=== PATIENT | male | born 1975 | race Caucasian/White ===

== ENCOUNTER 2018-06-25 13:19 | Inpatient (IN) ==
--- NOTE | 2018-06-25 16:18 | ED ---
HPI General Chief Complaint: Psychiatric Symptoms Stated Complaint: psych eval Time Seen by Provider: 06/25/18 15:14 Source: patient Mode of arrival: ambulatory Limitations: no limitations History of Present Illness HPI Narrative: 42-year-old male presents to the emergency department under Wren act. According to the Wren act report the patient was psychotic manic threatening in office. Nonsensical stream of thought. Noncompliant with meds. Patient was Wren acted by his primary care provider Joanne Lucia. Patient denies suicidal or homicidal ideations. Reports history of suicide attempt by sitting in front of a bus and overdosing on 1000 mg of trazodone. Denies auditory visual hallucinations. Reports "out of body experiences." Says he last took lithium this morning with the Risperdal to try to calm down to go to the office to get help. No known aggravating or relieving factors. Onset unknown. Duration chronic. Symptoms are moderate to severe in severity. Reports alcohol use, marijuana use, tobacco use. Sees Dr. Almendarez for psychiatry. Has history of bipolar, depression, PTSD, anxiety. Has no other medical complaints. Denies chest pain, shortness breath, abdominal pain, nausea , vomiting, change in urine or stool. No other modifying factors or associated signs and symptoms. Related Data Home Medications Medication Instructions Recorded Confirmed Marijuanna 06/25/18 bupropion HCl 150 mg PO DAILY 06/25/18 06/25/18 crofelemer [Mytesi] 125 mg PO BID 06/25/18 06/25/18 diazepam [Valium] 10 mg PO TID 06/25/18 06/25/18 dronabinol 5 mg PO BID 06/25/18 06/25/18 duloxetine [Cymbalta] 30 mg PO DAILY 06/25/18 06/25/18 esomeprazole magnesium [Nexium] 40 mg PO DAILY 06/25/18 06/25/18 levothyroxine 75 mcg PO DAILY 06/25/18 06/25/18 lithium carbonate 300 mg PO TID 06/25/18 06/25/18 zwejdhlq-inb-OM-lycopen-lutein 1 tab PO DAILY 06/25/18 06/25/18 [Centrum Silver Men] mupirocin 1 applic TOPICAL BID 06/25/18 06/25/18 mv,Ca,lpc-pesh-AC-lycopene PO DAILY 06/25/18 [Centrum Men] risperidone [Risperdal] 1 mg PO HS 06/25/18 06/25/18 tamsulosin 0.4 mg PO DAILY 06/25/18 06/25/18 topiramate [Topamax] 50 mg PO BID 06/25/18 06/25/18 triamcinolone acetonide TOPICAL DIRECTED 06/25/18 valacyclovir 1,000 mg PO BID 06/25/18 06/25/18 Allergies Allergy/AdvReac Type Severity Reaction Status Date / Time No Known Allergies Allergy Mild Uncoded 11/19/07 13:04 Review of Systems ROS: all other systems reviewed are negative PMFSH History History Provided By: Patient Medical History Medical History Hypothyroidism (Acute) Surgical History Surgical History History of tonsillectomy (Acute) Family History Family History Father Cardiac disease Social History Social History Substance History: Past History Second Hand Smoke Exposure: No Smoking Status: Current every day smoker Tobacco Type: Cigarettes How Often Do You Have a Drink Containing Alcohol: 4 or more times a week Recent Travel in [facility] within the Last 8 Weeks: No Recent Out of Country Travel within the Last 8 Weeks: No Exam Narrative Exam Narrative: GENERAL: Well-nourished, well-developed thin, male patient, in no acute distress SKIN: Warm and dry. HEAD: Atraumatic. Normocephalic. EYES: Pupils equal and round. ENT: Mucosa pink and moist. NECK: Supple. Trachea midline. CARDIOVASCULAR: Regular rate and rhythm. No murmur appreciated. RESPIRATORY: No accessory muscle use. Clear to auscultation. Breath sounds equal bilaterally. GASTROINTESTINAL: Abdomen soft, non-tender, nondistended. Hepatic and splenic margins not palpable. Bowel sounds are active 4 quadrants. MUSCULOSKELETAL: No obvious deformities. No clubbing. No cyanosis. No edema. BACK: No CVA tenderness. NEUROLOGICAL: Awake and alert. Oriented 3. No obvious cranial nerve deficits. Motor grossly within normal limits. Normal speech. Moves all extremities. 5/5 strength to all extremities. PSYCHIATRIC: No delusional thought processes. No hallucinations. Course Initial Documented Vital Signs Temperature 98.1 F 06/25/18 13:38 Pulse Rate 104 H 06/25/18 13:38 Respiratory Rate 20 06/25/18 13:38 Blood Pressure 144/97 H 06/25/18 13:38 Pulse Oximetry 100 06/25/18 13:38 Last Documented Vital Signs Temperature 97.7 F 06/27/18 06:00 Pulse Rate 78 06/27/18 06:00 Respiratory Rate 18 06/27/18 06:00 Blood Pressure 127/74 06/27/18 06:00 Pulse Oximetry 100 06/27/18 06:00 Medical Decision Making MDM Narrative Medical decision making narrative: Patient presents under a Wren act. Physical examination and vital signs are essentially unremarkable. Patient has no medical complaints to report. Psych screen has been ordered. If the laboratory results are unremarkable, the patient will be medically cleared for psychiatric evaluation and disposition. Medical Screen Exam Complete: Yes Emergency Medical Condition: Yes Differential Diagnosis Differential Diagnosis: Bipolar disorder, depression, suicidal ideation, medical clearance for psychiatric evaluation Lab Data Result diagrams: 06/25/18 16:41 06/25/18 16:41 Lab Results 06/25/18 06/25/18 06/25/18 Range/Units 14:50 16:41 16:41 WBC 6.0 (4.0-11.0) th/mm3 RBC 4.03 L (4.50-5.90) mil/mm3 Hgb 14.7 (13.0-17.0) gm/dL Hct 42.7 (39.0-51.0) % MCV 105.9 H (80.0-100.0) fL MCH 36.4 H (27.0-34.0) pg MCHC 34.4 (32.0-36.0) % RDW 13.1 (11.6-17.2) % Plt Count 297 (150-450) th/mm3 MPV 7.3 (7.0-11.0) fL Neut % (Auto) 40.9 (16.0-70.0) % Lymph % (Auto) 42.5 (9.0-44.0) % Harmon % (Auto) 8.9 H (0.0-8.0) % Eos % (Auto) 6.6 H (0.0-4.0) % Baso % (Auto) 1.1 (0.0-2.0) % Neut # (Auto) 2.5 (1.8-7.7) th/mm3 Lymph # (Auto) 2.5 (1.0-4.8) th/mm3 Harmon # (Auto) 0.5 (0.0-0.9) th/mm3 Eos # (Auto) 0.4 (0.0-0.4) th/mm3 Baso # (Auto) 0.1 (0.0-0.2) th/mm3 WBC Differential . Differential Comment Auto diff final Sodium 146 H (136-145) meq/L Potassium 3.7 (3.5-5.1) meq/L Chloride 112 H (98-107) meq/L Carbon Dioxide 23.8 (21.0-32.0) meq/L Anion Gap 10 (5-15) meq/L BUN 12 (7-18) mg/dL Creatinine 1.26 (0.60-1.30) mg/dL Estimated GFR 63 L (>89) mL/min Random Glucose 57 L (74-106) mg/dL Calcium 8.9 (8.5-10.1) mg/dL Total Bilirubin 0.3 (0.2-1.0) mg/dL AST 13 L (15-37) U/L ALT 27 (12-78) U/L Alkaline Phosphatase 39 L (45-117) U/L Total Protein 8.1 (6.4-8.2) g/dL Albumin 4.2 (3.4-5.0) g/dL TSH 1.010 (0.358-3.740) uIU/mL Salicylates (2.8-20.0) mg/dL Urine Opiates Screen Neg (Neg) Acetaminophen Less than 2.0 L (10.0-30.0) mcg/mL Ur Barbiturates Screen Neg (Neg) Ur Amphetamines Screen Neg (Neg) U Benzodiazepines Scrn Neg (Neg) [place] (0.5-1.5) meq/L Urine Cocaine Screen Neg (Neg) U Cannabinoids Screen Pos H (Neg) Serum Alcohol Less than 3 (0-5) mg/dL 06/25/18 06/25/18 Range/Units 16:41 16:41 WBC (4.0-11.0) th/mm3 RBC (4.50-5.90) mil/mm3 Hgb (13.0-17.0) gm/dL Hct (39.0-51.0) % MCV (80.0-100.0) fL MCH (27.0-34.0) pg MCHC (32.0-36.0) % RDW (11.6-17.2) % Plt Count (150-450) th/mm3 MPV (7.0-11.0) fL Neut % (Auto) (16.0-70.0) % Lymph % (Auto) (9.0-44.0) % Harmon % (Auto) (0.0-8.0) % Eos % (Auto) (0.0-4.0) % Baso % (Auto) (0.0-2.0) % Neut # (Auto) (1.8-7.7) th/mm3 Lymph # (Auto) (1.0-4.8) th/mm3 Harmon # (Auto) (0.0-0.9) th/mm3 Eos # (Auto) (0.0-0.4) th/mm3 Baso # (Auto) (0.0-0.2) th/mm3 WBC Differential Differential Comment Sodium (136-145) meq/L Potassium (3.5-5.1) meq/L Chloride (98-107) meq/L Carbon Dioxide (21.0-32.0) meq/L Anion Gap (5-15) meq/L BUN (7-18) mg/dL Creatinine (0.60-1.30) mg/dL Estimated GFR (>89) mL/min Random Glucose (74-106) mg/dL Calcium (8.5-10.1) mg/dL Total Bilirubin (0.2-1.0) mg/dL AST (15-37) U/L ALT (12-78) U/L Alkaline Phosphatase (45-117) U/L Total Protein (6.4-8.2) g/dL Albumin (3.4-5.0) g/dL TSH (0.358-3.740) uIU/mL Salicylates 3.3 (2.8-20.0) mg/dL Urine Opiates Screen (Neg) Acetaminophen (10.0-30.0) mcg/mL Ur Barbiturates Screen (Neg) Ur Amphetamines Screen (Neg) U Benzodiazepines Scrn (Neg) [place] 0.3 L (0.5-1.5) meq/L Urine Cocaine Screen (Neg) U Cannabinoids Screen (Neg) Serum Alcohol (0-5) mg/dL Discharge Plan Discharge Disposition Patient Disposition: 30 Still Patient Discharge Condition Condition: Stable Physicians Team ED Provider: Yuan Alva ED Midlevel Provider: Trena White Primary Care Provider: UNKNOWN, Attending Provider: Hermelindo Amador Other Providers: Yuan Gomez Status ED Status: Left Department Discharge Information Discharge Date/Time: 06/25/18 21:45
[2018-06-25 16:53] LABS: Baso # (Auto) 0.1 th/mm3 (0.0-0.2); Baso % (Auto) 1.1 % (0.0-2.0); Eos # (Auto) 0.4 th/mm3 (0.0-0.4); Eos % (Auto) 6.6 % (0.0-4.0); Hematocrit 42.7 % (39.0-51.0); Hemoglobin 14.7 gm/dL (13.0-17.0); Lymph # (Auto) 2.5 th/mm3 (1.0-4.8); Lymph % (Auto) 42.5 % (9.0-44.0); Mean Corpuscular HGB Conc 34.4 % (32.0-36.0); Mean Corpuscular Hemoglobin 36.4 pg (27.0-34.0); Mean Corpuscular Volume 105.9 fL (80.0-100.0); Mean Platelet Volume 7.3 fL (7.0-11.0); Mono # (Auto) 0.5 th/mm3 (0.0-0.9); Mono % (Auto) 8.9 % (0.0-8.0); Neut # (Auto) 2.5 th/mm3 (1.8-7.7); Neut % (Auto) 40.9 % (16.0-70.0); Platelet Count 297 th/mm3 (150-450); Red Blood Count 4.03 mil/mm3 (4.50-5.90); Red Cell Distribution Width 13.1 % (11.6-17.2)
[2018-06-25 17:06] LABS: Amphetamine Screen,Urine Neg (Neg); Barbiturate Screen,Urine Neg (Neg); Cannabinoid Screen,Urine Pos (Neg); Cocaine Screen,Urine Neg (Neg)
[2018-06-25 17:10] LABS: Opiate Screen,Urine Neg (Neg)
[2018-06-25 17:17] LABS: Alanine Aminotransferase 27 U/L (12-78); Albumin 4.2 g/dL (3.4-5.0); Anion Gap 10 meq/L (5-15); Aspartate Aminotransferase 13 U/L (15-37); Blood Urea Nitrogen 12 mg/dL (7-18); Calcium 8.9 mg/dL (8.5-10.1); Carbon Dioxide 23.8 meq/L (21.0-32.0); Chloride 112 meq/L (98-107); Glomerular Filtration Rate 63 mL/min (>89); Glucose,Random 57 mg/dL (74-106); Potassium 3.7 meq/L (3.5-5.1); Sodium 146 meq/L (136-145)
[2018-06-25 17:27] LABS: Alkaline Phosphatase 39 U/L (45-117); Total Protein 8.1 g/dL (6.4-8.2)
[2018-06-25] MEDS: Topiramate 25 MG Tablet PO SCH (21:35)
[2018-06-26] MEDS: Levothyroxine 75 MCG Tablet PO SCH (06:19)
[2018-06-26] MEDS: Topiramate 25 MG Tablet PO SCH ×2 (08:44→21:35)
[2018-06-26] MEDS ORDERED: VALACYCLOVIR 1000 MG PO SCH (09:00)
[2018-06-26] MEDS ORDERED: CROFELEMER 125 MG PO SCH (09:00)
[2018-06-26] MEDS: buPROPion 150 MG XL 24 HR Tablet PO SCH (09:23)
--- NOTE | 2018-06-26 16:44 | P.CON ---
History of Present Illness Service: [facility] Consult date: 06/26/18 Requesting Physician: Hermelindo Amador Reason for Consult: Assist with medical management Primary Care Provider: UNKNOWN History of Present Illness: Patient is a 42-year-old male with primary medical history of hypothyroidism who initially came to the hospital under Wren act from PCP. He is now admitted to inpatient psychiatry unit for further evaluation. Consulted for assistance with medical management, TMJ, HIV on HAART, sores with dentures. Patient seen and examined today. Patient started on saying that there is something wrong with his neck and his skin in his body. Patient is very somatic and most of his reasons are intangible. He believes that if he "massages his muscles in his head that he has had shrinks making his skull small." States he has AIDs HIV he got from chickenpox. States that he follows with [facility] with Dr. Mccullough. Patient just keeps on reverting to all his ailments but does not accept the medical reasons. He believes " I am a medical mystery." C/o about "trouble swallowing and felt throat is tight." States he has all "egd and colonoscopy done but they can't find anything." Patient appears to be severely manic. Somatic. He complains of discomfort, nausea, vomiting, chest pain, palpitations. Review of Systems other (ROS is skewed due to mental condition) [facility] History History Provided By: Patient - Medical History Medical History: Medical History (Last Updated 06/26/18 @ 16:47 by MISHA Johnson) Hypothyroidism - Surgical History Surgical History: Surgical History (Last Updated 06/25/18 @ 16:24 by Eduardo Avalos) History of tonsillectomy - Family History Family History: Family History (Last Updated 06/26/18 @ 17:50 by MISHA Johnson) Father Cardiac disease - Social History I have reviewed the patient's Social History: Yes - Tobacco History Second Hand Smoke Exposure: No Tobacco Use In Past 30 Days: Yes Smoking Status: Current every day smoker Tobacco Type: Cigarettes - Alcohol History How Often Do You Have a Drink Containing Alcohol: 4 or more times a week - Substance Use History Substance History: Past History - Substance Use Type Other Comment: Patient was very vague about his substance use; patient specifically stated "substance use....not substance abuse". Patient states "it would be easier to tell you what I haven't done...". Then patient listed substances used , methamphetamine, coke, cocaine and marijuana. Patient denies current use. - Travel History Recent Travel in the [place] Within the Last 8 Weeks: No Recent Travel Out of the Country Within the Last 8 Weeks: No - Immunization History Tetanus Immunization: <5 Years Tetanus Immunization Year if Known: 2015 Hx Influenza Vaccine This Season: No Medications and Allergies Active Medications: Active Medications Bupropion HCl (Wellbutrin Xl) 150 mg PO DAILY [facility] Last Admin: 06/26/18 09:23 Dose: Not Given Diazepam (Valium) 10 mg PO TID [facility] Last Admin: 06/26/18 12:41 Dose: 10 mg Dronabinol (Marinol) 5 mg PO 1100,1600 [facility] Last Admin: 06/26/18 15:56 Dose: 5 mg Duloxetine HCl (Cymbalta) 30 mg PO DAILY [facility] Last Admin: 06/26/18 09:23 Dose: Not Given Levothyroxine Sodium (Synthroid) 75 mcg PO DAILY@0600 [facility] Last Admin: 06/26/18 06:19 Dose: 75 mcg U[place]ala Carbonate (Upsala Carbonate) 300 mg PO TID [facility] Last Admin: 06/26/18 12:42 Dose: 300 mg Nicotine (Habitrol 21 Mg Patch.24 Hr) 1 patch T-DERMAL DAILY [facility] Last Admin: 06/26/18 14:02 Dose: 1 patch Pantoprazole Sodium (Protonix) 40 mg PO DAILY [facility] Last Admin: 06/26/18 08:43 Dose: 40 mg Patch Removal (Remove Old Patch) 0 each T-DERMAL HS [facility] Pat Own Med: Crofelemer (Mytesi) 125mg Tablet 0 each PO BID [facility] Pat Own Med: Valcyclovir 1000mg Tablet 0 each PO BID [facility] Risperidone (Risperdal) 1 mg PO DAILY@2100 [facility] Last Admin: 06/25/18 23:46 Dose: Not Given Tamsulosin HCl (Flomax) 0.4 mg PO DAILY [facility] Last Admin: 06/26/18 08:44 Dose: Not Given Topiramate (Topamax) 50 mg PO BID [facility] Last Admin: 06/26/18 08:44 Dose: 50 mg Allergies Allergy/AdvReac Type Severity Reaction Status Date / Time No Known Allergies Allergy Mild Uncoded 11/19/07 13:04 Home Medications Medication Instructions Recorded Confirmed Type Alber 06/25/18 History bupropion HCl 150 mg PO DAILY 06/25/18 06/25/18 History crofelemer [Mytesi] 125 mg PO BID 06/25/18 06/25/18 History diazepam [Valium] 10 mg PO TID 06/25/18 06/25/18 History dronabinol 5 mg PO BID 06/25/18 06/25/18 History duloxetine [Cymbalta] 30 mg PO DAILY 06/25/18 06/25/18 History esomeprazole magnesium [Nexium] 40 mg PO DAILY 06/25/18 06/25/18 History levothyroxine 75 mcg PO DAILY 06/25/18 06/25/18 History lithium carbonate 300 mg PO TID 06/25/18 06/25/18 History dzxfjtrj-yam-YI-lycopen-lutein 1 tab PO DAILY 06/25/18 06/25/18 History [Centrum Silver Men] mupirocin 1 applic TOPICAL BID 06/25/18 06/25/18 History mv,Ca,cna-hsyj-OM-lycopene PO DAILY 06/25/18 History [Centrum Men] risperidone [Risperdal] 1 mg PO HS 06/25/18 06/25/18 History tamsulosin 0.4 mg PO DAILY 06/25/18 06/25/18 History topiramate [Topamax] 50 mg PO BID 06/25/18 06/25/18 History triamcinolone acetonide TOPICAL DIRECTED 06/25/18 History valacyclovir 1,000 mg PO BID 06/25/18 06/25/18 History Physical Exam Vital signs: Vital Signs 06/25/18 17:42 06/25/18 18:35 06/25/18 22:15 Temperature 98.6 F 97.6 F Pulse Rate 105 H 83 90 Respiratory Rate 20 16 18 Blood Pressure 143/81 H 154/89 H 120/76 Pulse Oximetry 100 100 100 06/26/18 05:34 Temperature 97.9 F Pulse Rate 85 Respiratory Rate 16 Blood Pressure 130/78 Pulse Oximetry 100 Intake & Output 06/25/18 06/26/18 06/26/18 18:59 06:59 18:59 Weight 63.503 kg 63.503 kg Other: Weight On Admission 63.503 kg Narrative: GENERAL: This is a thin appearing, in no apparent distress. SKIN: Warm and dry HEENT: Normocephalic. Pupils equal round and reactive. Nose without bleeding. Airway patent. NECK: Trachea midline. CARDIOVASCULAR: Regular rate and rhythm without murmurs, gallops, or rubs. RESPIRATORY: Clear to auscultation. Breath sounds equal bilaterally. No wheezes , rales, or rhonchi. GASTROINTESTINAL: Abdomen soft, non-tender, nondistended. Bowel Sounds normoactive x4. MUSCULOSKELETAL: Extremities without clubbing, cyanosis, or edema. NEUROLOGICAL: Awake and alert. No focal neuro deficit. Moves all extremities. Hyperverbal. Delusions. Assessment and Plan - Plan Patient is a 42-year-old male with primary medical history of hypothyroidism who initially came to the hospital under Wren act from PCP. He is now admitted to inpatient psychiatry unit for further evaluation. Consulted for assistance with medical management. Bipolar, schizoaffective disorder, somatic disorder -Managed by psychiatry team -Patient is very somatic, of his complaints are not reasonable and reliable HIV -Continue with heart medication TRIUMEQ -Continue to follow with Dr. Mccullough in the outpatient setting Hypothyroidism -Continue with levothyroxine -Check TSH -Appears to have goiter protrusion, US thyroid DVT Prop Ambulatory Code Status: Full Code Discussed Condition With: Patient, nurse Discharge Planning: DC disposition by primary team
[2018-06-26] MEDS ORDERED: [UNRECOGNIZED DRUG - OTHER] PO SCH (18:00)
--- NOTE | 2018-06-26 20:52 | P.HPPSY ---
Provisional Diagnosis Admission Date: June 25, 2018 21:49 [place] I.: Bipolar disorder, manic episode Competence Certification of Person's Competence To Provide Express and Informed Consent I have personally examined Billy Knight, a person being served at [facility] on, June 26, [id number]. Express and informed consent means consent voluntarily given in writing, by a competent person, after sufficient explanation and disclosure of the subject matter involved to enable the person to make a knowing and willful decision without any element of force, fraud, deceit, duress, or other form of constraint or coercion. This person is 18 years of age or older, is not now known to be incompetent to consent to treatment with a guardian advocate, and does not have a health care surrogate or proxy currently making medical treatment decisions. I have found this person to be one of the following: [xxx] Competent to provide express and informed consent, as defined above, for voluntary admission to this facility and is competent to provide express and informed consent for treatment. He/she has the consistent capacity to make well reasoned, willful, and knowing decisions concerning his or her medical or mental health treatment. The person fully and consistently understands the purpose of the admission for examination/placement and is fully capable of personally exercising all rights assured [place] [] Incompetent to provide express and informed consent to voluntary admission, and this is incompetent to provide express and informed consent to treatment. The person must be transferred to involuntary status and a petition for a guardian advocate filed with the Circuit Court. [] Refusing to provide express and informed consent to voluntary admission but is competent to provide express and informed consent for treatment. The person must be discharged or transferred to involuntary status. Form shall be completed within 24 hours of a person's arrival at the receiving facility and filed in the clinical record of each person: 1. Admitted on a voluntary basis 2. Permitted to provide express and informed consent to his/her own treatment 3. Allowed to transfer from involuntary to voluntary status 4. Prior to permitting a person to consent to his or her own treatment after having been previously found incompetent to consent to treatment. History of Present Illness Capacity: Has capacity History of Present Illness: Patient is a 42-year-old man, single, with 2 children, domiciled with parents, unemployed on SSI, with a past psychiatric history of bipolar disorder , PTSD, depression and anxiety, one previous psychiatric admission, reports 2 previous suicide attempts, self-injurious behavior via hitting, with a substance use history significant for polysubstance use, with a past medical history of HIV, hypothyroidism who was brought in under [place] act due to being threatening in the office of his primary care doctor, nonsensical stream of thoughts and compliant with medications which patient was admitted to the inpatient psychiatry for further evaluation and management. Patient had been Wren acted by primary care doctor, has history of suicide attempt via overdose in the past previously on lithium and risperidone, has outpatient psychiatrist whom he follows, Dr. Black. Patient was found somewhat loud and labile on the unit but interviewed in his room along with nurse and medical students. Patient noted with irritability during interview is labile, tangential require redirection at times for interview. Patient states having several somatic symptoms. Patient reports that his whole family has "dehydration" and stated he was Wren acted from his home stating that he had called police because his family was not listening to him as opposed to report of patient being Wren acted from primary care office. Patient states that she had a prior psychiatric admission at [facility] in which she felt "drugged up" and was on lithium, risperidone during that admission. Patient states that he lives in a house of "no acknowledgment" likely having relationship discord with his family. Patient has difficulty with redirection during interview noted with pressured speech, tangentiality and disorganization. Family psychiatric history: Patient reports bipolar disorder in his family Past psychiatric history: Bipolar disorder, PTSD, depression and anxiety, reports one previous psychiatric admission, reports 2 previous suicide attempt in the past, reports self-injurious behavior via hitting. Patient has outpatient provider Dr. Black and currently on Wellbutrin 150 mg daily, diazepam 10 mg p.o. 3 times daily, risperidone 1 mg daily, Cymbalta 30 mg daily , lithium 300 mg p.o. 3 times daily. Patient recent lithium level was subtherapeutic. Substance use history: alcohol, methamphetamine, cocaine and marijuana Allergies: NKDA Past medical history: HIV on Love, hypothyroidism Social history, single, has 2 children, domiciled with parents, unemployed on SSI. - Inpatient Certification I certify that the inpatient services were ordered in accordance with Medicare regulations governing the order. This includes certification that hospital inpatient services are reasonable and necessary and in the case of services not specified as inpatient-only under 42 CFR 419.22(n), that they are appropriately provided as inpatient services in accordance to with the 2-midnight benchmark under 43 CFR 412.3(e) I certify that inpatient psychiatric hospital services are medically necessary. Evaluation and treatment and/or diagnostic testing are expected to improve the patient's condition. The patient needs on a daily basis, active treatment furnished directly by or requiring the supervision of inpatient psychiatric facility personnel. Estimated Total Length of Stay (Days): 7 Plans for Post Hospital Care: Not yet determined Review of Systems All other systems reviewed negative except as stated in HPI PMFSH - History History Provided By: Patient, Medical Record - Medical History Medical History: Medical History (Last Updated 06/26/18 @ 16:47 by MISHA Johnson) Hypothyroidism - Surgical History Surgical History: Surgical History (Last Updated 06/25/18 @ 16:24 by Eduardo Avalos) History of tonsillectomy - Family History Family History: Family History (Last Updated 06/26/18 @ 17:50 by MISHA Johnson) Father Cardiac disease - Tobacco History Second Hand Smoke Exposure: No Tobacco Use In Past 30 Days: Yes Smoking Status: Current every day smoker Tobacco Type: Cigarettes - Alcohol History How Often Do You Have a Drink Containing Alcohol: 4 or more times a week - Substance Use History Substance History: Past History - Substance Use Type Other Comment: Patient was very vague about his substance use; patient specifically stated "substance use....not substance abuse". Patient states "it would be easier to tell you what I haven't done...". Then patient listed substances used , methamphetamine, coke, cocaine and marijuana. Patient denies current use. - Travel History Recent Travel in the [place] Within the Last 8 Weeks: No Recent Travel Out of the Country Within the Last 8 Weeks: No - Immunization History Tetanus Immunization: <5 Years Tetanus Immunization Year if Known: 2015 Hx Influenza Vaccine This Season: No Quality Measures - Psychiatric History Violence risk to others in the last 6 months: Low Violence risk to self in the last 6 months: History of previous suicide attempts - Substance Abuse History Drug or alcohol use in the past 12 months: See HPI - Patient Strengths Patient's strengths (minimum of 2): Verbal and communicative Medications and Allergies Active Medications: Active Medications Bupropion HCl (Wellbutrin Xl) 150 mg PO DAILY [facility] Last Admin: 06/26/18 09:23 Dose: Not Given Diazepam (Valium) 10 mg PO TID [facility] Last Admin: 06/26/18 18:16 Dose: 10 mg Dronabinol (Marinol) 5 mg PO 1100,1600 [facility] Last Admin: 06/26/18 15:56 Dose: 5 mg Duloxetine HCl (Cymbalta) 30 mg PO DAILY [facility] Last Admin: 06/26/18 09:23 Dose: Not Given Levothyroxine Sodium (Synthroid) 75 mcg PO DAILY@0600 [facility] Last Admin: 06/26/18 06:19 Dose: 75 mcg [place] Carbonate ([place] Carbonate) 300 mg PO TID [facility] Last Admin: 06/26/18 18:16 Dose: 300 mg Nicotine (Habitrol 21 Mg Patch.24 Hr) 1 patch T-DERMAL DAILY [facility] Last Admin: 06/26/18 14:02 Dose: 1 patch Pantoprazole Sodium (Protonix) 40 mg PO DAILY [facility] Last Admin: 06/26/18 08:43 Dose: 40 mg Patch Removal (Remove Old Patch) 0 each T-DERMAL [facility] Pat Own Med: Crofelemer (Mytesi) 125mg Tablet 0 each PO BID [facility] Pat Own Med: Valcyclovir 1000mg Tablet 0 each PO BID [facility] Pt:Triumeq(600 Mg/50 (Mg/300 Mg)) 0 each PO DAILY [facility] Risperidone (Risperdal) 1 mg PO DAILY@2100 [facility] Last Admin: 06/25/18 23:46 Dose: Not Given Tamsulosin HCl (Flomax) 0.4 mg PO DAILY [facility] Last Admin: 06/26/18 08:44 Dose: Not Given Topiramate (Topamax) 50 mg PO BID [facility] Last Admin: 06/26/18 08:44 Dose: 50 mg Allergies Allergy/AdvReac Type Severity Reaction Status Date / Time No Known Allergies Allergy Mild Uncoded 11/19/07 13:04 Home Medications Medication Instructions Recorded Confirmed Type Alber 06/25/18 History bupropion HCl 150 mg PO DAILY 06/25/18 06/25/18 History crofelemer [Mytesi] 125 mg PO BID 06/25/18 06/25/18 History diazepam [Valium] 10 mg PO TID 06/25/18 06/25/18 History dronabinol 5 mg PO BID 06/25/18 06/25/18 History duloxetine [Cymbalta] 30 mg PO DAILY 06/25/18 06/25/18 History esomeprazole magnesium [Nexium] 40 mg PO DAILY 06/25/18 06/25/18 History levothyroxine 75 mcg PO DAILY 06/25/18 06/25/18 History lithium carbonate 300 mg PO TID 06/25/18 06/25/18 History vknfxmyp-fzq-ZB-lycopen-lutein 1 tab PO DAILY 06/25/18 06/25/18 History [Centrum Silver Men] mupirocin 1 applic TOPICAL BID 06/25/18 06/25/18 History mv,Ca,nzp-hwny-YH-lycopene PO DAILY 06/25/18 History [Centrum Men] risperidone [Risperdal] 1 mg PO HS 06/25/18 06/25/18 History tamsulosin 0.4 mg PO DAILY 06/25/18 06/25/18 History topiramate [Topamax] 50 mg PO BID 06/25/18 06/25/18 History triamcinolone acetonide TOPICAL DIRECTED 06/25/18 History valacyclovir 1,000 mg PO BID 06/25/18 06/25/18 History Results - Labs CBC & Chem 7: 06/25/18 16:41 06/25/18 16:41 Exam Vital signs: Vital Signs 06/25/18 22:15 06/26/18 05:34 Temperature 97.6 F 97.9 F Pulse Rate 90 85 Respiratory Rate 18 16 Blood Pressure 120/76 130/78 Pulse Oximetry 100 100 Intake & Output 06/26/18 06/26/18 06/27/18 06:59 18:59 06:59 Weight 63.503 kg Other: Weight On Admission 63.503 kg Narrative: Patient not noted to be in acute distress, no gross motor abnormalities, no signs of tremor or EPS, no psychomotor agitation or retardation. - Constitutional no acute distress, cooperative Mental Status Examination Appearance: Disheveled Consciousness: Alert Orientation: Person, Place, Date/Time Motor Activity: Normal gait Speech: Pressured, Rapid Language: Neologism Fund of Knowledge: Inadequate Attention and Concentration: Easily distracted Memory: Unremarkable Mood: Irritable, Manic Affect: Labile Thought Process & Associations: Disorganized, Tangential Thought Content: Racing thoughts Hallucination Type: None Delusion Type: None Suicidal Ideation: No Suicidal Plan: No Suicidal Intention: No Homicidal Ideation: No Homicidal Plan: No Homicidal Intention: No Insight: Poor Judgment: Poor Assessment and Plan - Assessment (1) Bipolar disorder Code(s): F31.9 - Bipolar disorder, unspecified Status: Acute - Plan Plan: Estimated LOS: [] days Patient is a 42-year-old man with a history of bipolar disorder, previous psychiatric admissions, previous suicide attempts, polysubstance use disorder history, with a past medical history significant for HIV and hypothyroidism who was brought in under Wren act due to current manic symptoms which patient this time continues to exhibit require psychiatric stabilization. We will have patient resume home medications, hospitalist input appreciated. We will continue to monitor mood and behavior. Patient agrees to voluntary admission has capacity to consent for treatment at this time. Discharge planning a progress. Justification for Continued Inpatient Stay: At risk of further decompensation at lower level care. (1) Bipolar disorder Qualifiers: Active/Remission status: currently active Current bipolar episode type: manic Current episode severity: severe Psychotic features: without psychotic features Qualified Code(s): F31.13 - Bipolar disorder, current episode manic without psychotic features, severe
[2018-06-27] MEDS: Levothyroxine 75 MCG Tablet PO SCH (06:20)
[2018-06-27] MEDS ORDERED: DOLUTEGRAVIR PO SCH (09:00)
[2018-06-27] MEDS ORDERED: LAMIVUDINE PO SCH (09:00)
[2018-06-27] MEDS ORDERED: ABACAVIR PO SCH (09:00)
--- NOTE | 2018-06-27 09:38 | US ---
EXAM DATE: 06/27/2018 12:00 AM EDT AGE/SEX: 42 years / Male INDICATIONS: Difficulty swallowing. Possible goiter. Hypothyroidism. CLINICAL DATA: This is the patient's initial encounter. Patient reports that signs and symptoms have been present for 1 day and indicates a pain score of 0/10. MEDICAL/SURGICAL HISTORY: Hypothyroidism. HIV. TMJ. Tonsillectomy. COMPARISON: No prior exams available for comparison. MEASUREMENTS: Right Lobe: 5.8 x 1.6 x 1.5 cm Left Lobe: 4.7 x 1.8 x 1.9 cm FINDINGS: Right Lobe: Homogeneous echotexture without nodules or cysts. Vascularity is within normal limits. Left Lobe: Homogeneous echotexture without nodules or cysts. Vascularity is within normal limits. Isthmus: Normal in size without focal abnormality. Other: None. CONCLUSION: 1. Normal thyroid ultrasound. Electronically signed by: Vic Sales MD 06/27/2018 9:37 AM EDT
[2018-06-27] MEDS: buPROPion 150 MG XL 24 HR Tablet PO SCH (09:53)
[2018-06-27] MEDS: Topiramate 25 MG Tablet PO SCH ×2 (09:55→21:14)
[2018-06-27] MEDS: DOLUTEGRAVIR PO SCH (09:56)
[2018-06-27] MEDS: LAMIVUDINE PO SCH (09:56)
[2018-06-27] MEDS: ABACAVIR PO SCH (09:56)
--- NOTE | 2018-06-27 17:34 | P.PN ---
Subjective Interval history: Follow-up visit hypothyroidism and HIV. Patient seen today. States he is doing okay. Discussed with patient results of ultrasound of the thyroid being negative. TSH has been within normal. He needs to continue with his levothyroxine. As per nursing, no acute medical issues overnight. Physical Exam Vital signs: Vital Signs 06/27/18 06:00 Temperature 97.7 F Pulse Rate 78 Respiratory Rate 18 Blood Pressure 127/74 Pulse Oximetry 100 Intake & Output 06/26/18 06/27/18 06/27/18 18:59 06:59 18:59 Intake Total 240 / 240 Balance 240 / 240 Intake: Oral 240 / 240 Narrative: GENERAL: This is a thin appearing, in no apparent distress. SKIN: Warm and dry. HEENT: Normocephalic. Pupils equal round and reactive. Nose without bleeding. Airway patent. NECK: Trachea midline. MUSCULOSKELETAL: Extremities without clubbing, cyanosis, or edema. NEUROLOGICAL: Awake and alert. No focal neuro deficit. Moves all extremities. Normal speech. Results - Labs CBC & Chem 7: 06/25/18 16:41 06/25/18 16:41 - Imaging Impressions Thyroid Ultrasound 06/27/18 00:00 CONCLUSION: 1. Normal thyroid ultrasound. Assessment and Plan - Plan Patient is a 42-year-old male with primary medical history of hypothyroidism who initially came to the hospital under Wren act from PCP. He is now admitted to inpatient psychiatry unit for further evaluation. Consulted for assistance with medical management. Bipolar, schizoaffective disorder, somatic disorder -Managed by psychiatry team -Patient is very somatic, of his complaints are not reasonable and reliable HIV -Continue with heart medication TRIUMEQ -Continue to follow with Dr. Mccullough in the outpatient setting Hypothyroidism -Continue with levothyroxine -TSH within normal -US thyroid within normal DVT Prop Ambulatory Stable from Hospitalist standpoint. We will sign off. Reconsult as needed. Thank you. Code Status: Full code Discussed Condition With: Patient, nurse Discharge Planning: DC disposition by primary team
--- NOTE | 2018-06-27 17:58 | P.PNPSY ---
Subjective Remarks: Patient seen for follow-up, chart reviewed. Discussion with nursing staff reported that patient had ultrasound of thyroid continue to be irritable, with a slight stated wanting to hurt promotion writer continues to be noted with pressured speech and racing thoughts. Patient was found in day room speaking to other patients. Patient was interviewed in his room along with initial medical students. Patient reports that he is feeling "fine" now that he is on his HIV medications. Patient also noted to be focused on the risperidone continue to be noted to be irritable during interview. Patient states "my house needs acknowledgment". Patient reports adequate appetite states she has been trying to go to group order was not allowed due to his behavior at this time. Patient states "I am hypersensitive to noise" which he states was disturbing his sleep. Review of Systems All other systems reviewed negative except as stated in HPI Mental Status Examination Appearance: Disheveled Consciousness: Alert Orientation: Person, Place, Date/Time Motor Activity: Normal gait Speech: Pressured, Rapid Language: Neologism Fund of Knowledge: Inadequate Attention and Concentration: Easily distracted Memory: Unremarkable Mood: Irritable, Manic Affect: Labile Thought Process & Associations: Disorganized, Tangential Thought Content: Racing thoughts Hallucination Type: None Delusion Type: None Suicidal Ideation: No Suicidal Plan: No Suicidal Intention: No Homicidal Ideation: No Homicidal Plan: No Homicidal Intention: No Insight: Poor Judgment: Poor Assessment and Plan - Assessment (1) Bipolar disorder Code(s): F31.9 - Bipolar disorder, unspecified Status: Acute - Plan Plan: Patient today continues with labile mood, irritability, disorganized at times and tangential. We will continue to increase risperidone to 100 mg p.o. twice daily for stabilization, continue rest of medications. Continue to monitor mood and behavior. We will draw lithium level at appropriate time interval. Discharge planning in progress. Justification for Continued Inpatient Stay: At risk of further decompensation at lower level care. (1) Bipolar disorder Qualifiers: Active/Remission status: currently active Current bipolar episode type: manic Current episode severity: severe Psychotic features: without psychotic features Qualified Code(s): F31.13 - Bipolar disorder, current episode manic without psychotic features, severe
--- NOTE | 2018-06-27 20:47 | ECG ---
Date Performed: 06/26/2018 Time Performed: 14:36:40 PTAGE: 42 years EKG: Sinus rhythm WITH SINUS ARRHYTHMIA NONSPECIFIC T-WAVE ABNORMALITY BORDERLINE ECG PREVIOUS TRACING : 11/14/2007 07.05 Since the previous tracing, no significant change noted DOCTOR: Terence Chacon Interpretating Date/Time 06/27/2018 20:46:18
[2018-06-28] MEDS: Levothyroxine 75 MCG Tablet PO SCH (07:41)
[2018-06-28] MEDS: DOLUTEGRAVIR PO SCH (08:02)
[2018-06-28] MEDS: ABACAVIR PO SCH (08:02)
[2018-06-28] MEDS: LAMIVUDINE PO SCH (08:02)
[2018-06-28] MEDS: Topiramate 25 MG Tablet PO SCH ×2 (08:03→21:20)
[2018-06-28] MEDS: buPROPion 150 MG XL 24 HR Tablet PO SCH (08:03)
--- NOTE | 2018-06-28 18:16 | P.PNPSY ---
Subjective Remarks: Reviewed electronic medical records and discussed case with staff. Follow-up was conducted in the day room with MARION Tolentino present. Patient states that he is "feeling a lot better" although, he claims that he has been sleeping well. He complains about the timing of his meds stating that he was given all his meds at lunchtime and fell asleep several times during lunch. However, upon checking his med rec I only see 2 medications being given at lunchtime, so I will make no changes. He does report that his appetite's been good. He is requesting a medical consult for his asthma stating that he cannot afford the breathing treatment that he is currently on. Although when I look at his med reconciliation again I do see he has an inhaler ordered and there is no indication of shortness of breath as he was quite manic and talking nonstop. So at this time I will not put a consult request in. Mental Status Examination Appearance: Disheveled Consciousness: Alert Orientation: Person, Place, Date/Time Motor Activity: Normal gait Speech: Pressured, Rapid Language: Neologism Fund of Knowledge: Inadequate Attention and Concentration: Easily distracted Memory: Unremarkable Mood: Irritable, Manic Affect: Labile Thought Process & Associations: Disorganized, Tangential Thought Content: Racing thoughts Hallucination Type: None Delusion Type: None Suicidal Ideation: No Suicidal Plan: No Suicidal Intention: No Homicidal Ideation: No Homicidal Plan: No Homicidal Intention: No Insight: Poor Judgment: Poor Assessment and Plan - Assessment (1) Bipolar disorder Code(s): F31.9 - Bipolar disorder, unspecified Status: Acute - Plan Plan: Patient will be reevaluated Saturday by the attending psychiatrist. Continue with current treatment plan. Justification for Continued Inpatient Stay: Moving this patient to a less restrictive environment would likely result in decompensation. (1) Bipolar disorder Qualifiers: Active/Remission status: currently active Current bipolar episode type: manic Current episode severity: severe Psychotic features: without psychotic features Qualified Code(s): F31.13 - Bipolar disorder, current episode manic without psychotic features, severe
[2018-06-29] MEDS: Levothyroxine 75 MCG Tablet PO SCH (05:31)
[2018-06-29] MEDS: buPROPion 150 MG XL 24 HR Tablet PO SCH (08:34)
[2018-06-29] MEDS: Topiramate 25 MG Tablet PO SCH ×2 (08:34→20:11)
[2018-06-29] MEDS: LAMIVUDINE PO SCH (08:35)
[2018-06-29] MEDS: DOLUTEGRAVIR PO SCH (08:35)
[2018-06-29] MEDS: ABACAVIR PO SCH (08:35)
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
[2018-06-30] MEDS: Levothyroxine 75 MCG Tablet PO SCH (07:15)
[2018-06-30] MEDS: ABACAVIR PO SCH (08:09)
[2018-06-30] MEDS: LAMIVUDINE PO SCH (08:09)
[2018-06-30] MEDS: DOLUTEGRAVIR PO SCH (08:09)
[2018-06-30] MEDS: Topiramate 25 MG Tablet PO SCH ×2 (08:11→20:13)
[2018-06-30] MEDS: buPROPion 150 MG XL 24 HR Tablet PO SCH (08:12)
--- NOTE | 2018-06-30 13:58 | P.TTN ---
- Patient Problems Problems: 1. Discharge planning 2. Medication compliance 3. Knowledge deficit 4. Lack of coping skills - Progress Toward Goals Provider Present: Dr. Sylvester Amador (Patient is manic, Dr. Amador is titrating medications.) Psychiatric Counselors Present: Stefan Moss Jr., [facility] (Counselor will meet with the patient today to discuss discharge plan.) Group Spec/RT/OT/GIBSON Present: PAIGE Kruse (Attends groups) - Documentation Teaching Recipient: Patient
--- NOTE | 2018-06-30 14:56 | P.DIET ---
Nutritional Evaluation Type of nutrition evaluation: initial Nutrition screening: Weight Loss > 10 lbs Subjective Oral Diet Tolerance Assessment Indicates: Dentures, Edentulous (please see ST noted 06/26/18) Subjective Comments: 100% po intake for meals today. Objective - Diagnosis Psychosis - Objective [place] body weight: 81 kg % IBW: 78 Body Weight Used for Calculations: Actual (63.5) Energy Needs - Lower Range (kCal/kg): 35 Energy Needs - Upper Range (kCal/kg): 40 Lower Limit kCal/kg (kCals): 2,223 Upper Limit kCal/kg (kCals): 2,540 Lower Limit Protein Factor (Grams per Kg): 1.4 Upper Limit Protein Factor (Grams per Kg): 1.8 Lower Protein Needs (Protein): 89 Upper Protein Needs (Protein): 114 Dietitian Reviewed in Medical Record: Current diet, Curent medications, Intake & Output, Labs, Medical history Diet Order: Regular Oral Diet Intake Amount: Good 75-90% Speech Therapy Recommendations: Yes (Pt w/loose fitting dentures; prefers po intake without dentures) Objective Comments: PMH includes: hypothyroidism, HIV on ART, bipolar DO, PTSD, Depression, Anxiety , PSA Meds Include: Wellbutrin, Vallium, Marinol, Cymbalta, Synthroid, [place] Carbonate, Protonix, Risperdal, Topamax Assessment Assessment: Pt is at nutritional risk r/t recent unintentional wt loss. Adequate po intake 75% or greater for meals here. Noted ST Rec for Mech Soft; however, pt tolerating regular diet. Rec Ensure Enlive oral supplement TID(= 350 kcal and 20g Protein per serving). Labs reviewed. Dietitian will follow. Recommendations: 1. Rec Ensure Enlive oral supplement TID 2. Dietitian will follow Dietitian to Monitor: Lab values, Supplement acceptance, Intake & Output, Diet tolerance, Weight change, PO Intake, Medical course
--- NOTE | 2018-06-30 16:30 | P.PNPSY ---
Subjective Remarks: Patient seen for follow-up, chart reviewed. Discussion with nursing staff reported that patient continues to be intrusive but noted to be more calm. Patient was found in the room noted B, cooperative. Patient noted to have less pressured speech, more organized thought process although continues to be tangential at times. Patient states that he had a "accident over the weekend" referring to some urinary incontinence was upset that he was not allowed to shower until after breakfast. Patient reports sleeping is "on and off" in contrast to nursing report the patient is sleeping without any disturbance. Patient reports his mood has been "great" stating that he has been busy helping "keep the peace" on the unit. Patient denies any depressed mood denies any suicide ideations. Patient reports that his mother came to visit him this evening and states that there is a lot of pressure in his home. He states that he is considering wanting to explore possibility of going to an assisted living facility as well as engage in the get back to work program through vocational training. He mentions that he had used to engage in the center program and has had vocational training in the past. Review of Systems All other systems reviewed negative except as stated in HPI Mental Status Examination Appearance: Appropriate Consciousness: Alert Orientation: Person, Place, Date/Time Motor Activity: Normal gait Speech: Pressured (Lessening) Language: Neologism Fund of Knowledge: Inadequate Attention and Concentration: Easily distracted Memory: Unremarkable Mood: Irritable (Lessening) Affect: Irritable (Lessening) Thought Process & Associations: Disorganized (Lessening), Tangential Thought Content: Racing thoughts (Lessening) Hallucination Type: None Delusion Type: None Suicidal Ideation: No Suicidal Plan: No Suicidal Intention: No Homicidal Ideation: No Homicidal Plan: No Homicidal Intention: No Insight: Fair Judgment: Impulsive Assessment and Plan - Assessment (1) Bipolar disorder Code(s): F31.9 - Bipolar disorder, unspecified Status: Acute - Plan Plan: Patient this time noted to have less pressured speech to be with more organized thought process and more appropriate in answering questions. We will continue to titrate risperidone to 1 mg a.m./2 mg at bedtime for mood stabilization, continue rest of medications. We will order chemistries and lithium level in the a.m. to monitor. We will continue rest of medications. We will continue to monitor mood and behavior. Discharge planning in progress. Justification for Continued Inpatient Stay: At risk of further decompensation at lower level care. (1) Bipolar disorder Qualifiers: Active/Remission status: currently active Current bipolar episode type: manic Current episode severity: severe Psychotic features: without psychotic features Qualified Code(s): F31.13 - Bipolar disorder, current episode manic without psychotic features, severe
[2018-07-01] MEDS: Levothyroxine 75 MCG Tablet PO SCH (05:38)
[2018-07-01] MEDS: ABACAVIR PO SCH (08:22)
[2018-07-01] MEDS: DOLUTEGRAVIR PO SCH (08:22)
[2018-07-01] MEDS: LAMIVUDINE PO SCH (08:22)
[2018-07-01] MEDS: Topiramate 25 MG Tablet PO SCH (08:23)
[2018-07-01] MEDS: buPROPion 150 MG XL 24 HR Tablet PO SCH (08:23)
[2018-07-01 12:21] LABS: Albumin 3.8 g/dL (3.4-5.0); Anion Gap 6 meq/L (5-15); Aspartate Aminotransferase 13 U/L (15-37); Blood Urea Nitrogen 25 mg/dL (7-18); Calcium 9.4 mg/dL (8.5-10.1); Carbon Dioxide 28.1 meq/L (21.0-32.0); Chloride 107 meq/L (98-107); Glomerular Filtration Rate 70 mL/min (>89); Glucose,Random 76 mg/dL (74-106); Potassium 4.3 meq/L (3.5-5.1); Sodium 141 meq/L (136-145)
[2018-07-01 12:23] LABS: Alanine Aminotransferase 26 U/L (12-78)
[2018-07-01 12:24] LABS: Alkaline Phosphatase 38 U/L (45-117); Total Protein 7.2 g/dL (6.4-8.2)
--- NOTE | 2018-07-01 16:03 | P.DSPSY ---
Psychiatry Discharge Summary Inpatient Psychiatric care?: Yes Advance Directives: No Mental Health Advance Directive: No Health Care Proxy: No - Admission Admission Date: June 25, 2018 21:49 - Admission Diagnosis (1) Bipolar disorder Code(s): F31.9 - Bipolar disorder, unspecified Brief History: Patient is a 42-year-old man, single, with 2 children, domiciled with parents, unemployed on SSI, with a past psychiatric history of bipolar disorder , PTSD, depression and anxiety, one previous psychiatric admission, reports 2 previous suicide attempts, self-injurious behavior via hitting, with a substance use history significant for polysubstance use, with a past medical history of HIV, hypothyroidism who was brought in under Wren act due to being threatening in the office of his primary care doctor, nonsensical stream of thoughts and compliant with medications which patient was admitted to the inpatient psychiatry for further evaluation and management. Patient had been Wren acted by primary care doctor, has history of suicide attempt via overdose in the past previously on lithium and risperidone, has outpatient psychiatrist whom he follows, Dr. Black. Patient was found somewhat loud and labile on the unit but interviewed in his room along with nurse and medical students. Patient noted with irritability during interview is labile, tangential require redirection at times for interview. Patient states having several somatic symptoms. Patient reports that his whole family has "dehydration" and stated he was Wren acted from his home stating that he had called police because his family was not listening to him as opposed to report of patient being Wren acted from primary care office. Patient states that she had a prior psychiatric admission at [facility] in which she felt "drugged up" and was on lithium, risperidone during that admission. Patient states that he lives in a house of "no acknowledgment" likely having relationship discord with his family. Patient has difficulty with redirection during interview noted with pressured speech, tangentiality and disorganization. Family psychiatric history: Patient reports bipolar disorder in his family Past psychiatric history: Bipolar disorder, PTSD, depression and anxiety, reports one previous psychiatric admission, reports 2 previous suicide attempt in the past, reports self-injurious behavior via hitting. Patient has outpatient provider Dr. Black and currently on Wellbutrin 150 mg daily, diazepam 10 mg p.o. 3 times daily, risperidone 1 mg daily, Cymbalta 30 mg daily , lithium 300 mg p.o. 3 times daily. Patient recent lithium level was subtherapeutic. Substance use history: alcohol, methamphetamine, cocaine and marijuana Allergies: NKDA Past medical history: HIV on Love, hypothyroidism Social history, single, has 2 children, domiciled with parents, unemployed on SSI. Tobacco Use In Past 30 Days: Yes How Often Do You Have a Drink Containing Alcohol: 4 or more times a week Hospital Course: Patient is a 42-year-old man, single, with 2 children, domiciled with parents, unemployed on SSI, with a past psychiatric history of bipolar disorder , PTSD, depression and anxiety, one previous psychiatric admission, reports 2 previous suicide attempts, self-injurious behavior via hitting, with a substance use history significant for polysubstance use, with a past medical history of HIV, hypothyroidism who was brought in under Wren act due to being threatening in the office of his primary care doctor, nonsensical stream of thoughts and compliant with medications which patient was admitted to the inpatient psychiatry for further evaluation and management. Patient was admitted to a locked, inpatient psychiatric unit. Appropriate precautions were in place throughout patient's hospital stay. Patient was seen and examined on the unit by psychiatry. Psychotropic medications were adjusted. There was no evidence of any suicidality or homicidality on the inpatient unit. Patient's mood improved with the benefit of psychopharmacological treatment and had no behavioral disturbance since admission. Patient was noted to have reached stable mood, noted to participate and engage in treatment and interact with staff adequately. Patient noted to be future oriented with plans to continue treatment and outpatient follow-up appointments for continuity of care. Counselor has arranged discharge plan and patient will be discharged back home with family. On the day of discharge: Patient seen and examined; chart reviewed. Case discussed with nurse and counselor. No behavioral issues overnight. On my examination today, the patient denies any suicidal homicidal ideation, intent or plan on direct questioning and contracts for safety. Patient denies any perceptional disturbances and no delusional material verbalized today. Patient denies any side effects from medication and has understanding of medication regimen and education. No physical complaints. Suicide and violence risk assessment on day of discharge both suggest lower imminent risk, and the patient's level of function is adequate for plan level of outpatient care. Patient has maximized benefit from this inpatient psychiatric hospital stay and will be discharged with discharge plan as arranged by counselor. Patient advised to return to psychiatric emergency room for any concerning psychiatric symptoms. Patient agrees with plan. - Discharge Discharge Date: 07/01/18 - Discharge Diagnosis (1) Bipolar disorder Code(s): F31.9 - Bipolar disorder, unspecified Status: Acute Discharge Disposition: Home - Discharge Instructions Discharge Diet: Heart Healthy Diet Activities You Can Perform: Regular- No Restrictions - Discharge Time > 30 minutes Mental Status Examination Appearance: Appropriate Consciousness: Alert Orientation: Person, Place, Date/Time Motor Activity: Normal gait Speech: Unremarkable Language: Adequate Fund of Knowledge: Inadequate Attention and Concentration: Adequate Memory: Unremarkable Mood: Appropriate Affect: Appropriate Thought Process & Associations: Intact, Logical, Goal directed Thought Content: Appropriate Hallucination Type: None Delusion Type: None Suicidal Ideation: No Suicidal Plan: No Suicidal Intention: No Homicidal Ideation: No Homicidal Plan: No Homicidal Intention: No Insight: Fair Judgment: Impulsive Discharge/Advance Care Plan - Results Vital Signs: Last Vital Signs Temp 97.4 F L 07/01/18 06:14 Pulse 82 07/01/18 06:14 Resp 18 07/01/18 06:14 BP 121/68 07/01/18 06:14 Pulse Ox 100 07/01/18 06:14 Lab Results: Abnormal Lab Results 07/01/18 07/01/18 11:30 11:30 Sodium 141 Potassium 4.3 Chloride 107 Carbon Dioxide 28.1 Anion Gap 6 BUN 25 H Creatinine 1.14 Estimated GFR 70 L Random Glucose 76 Calcium 9.4 Total Bilirubin 0.2 AST 13 L ALT 26 Alkaline Phosphatase 38 L Total Protein 7.2 D Albumin 3.8 [place] 0.6 Laboratory Results TSH 1.010 uIU/mL (0.358-3.740) 06/25/18 16:41 [place] 0.6 meq/L (0.5-1.5) 07/01/18 11:30 Summary of Procedures: none Imaging: ITS Impressions Thyroid Ultrasound 06/27/18 00:00 CONCLUSION: 1. Normal thyroid ultrasound. Pending Results: None - Medications Number of antipsychotic medications at discharge: 1 - Discharge Care Plan Goals to Promote Your Health: * To prevent worsening of your condition and complications * To maintain your health at the optimal level Directions to Meet Your Goals: Take your medications as prescribed Follow your dietary instruction Follow activity as directed Keep your appointments as scheduled Take your immunizations and boosters as scheduled If your symptoms worsen call your PCP, if no PCP go to Urgent Care Center or Emergency Room For 08/04 questions related to your inpatient stay or results of tests pending at discharge, please contact Dr. Hermelindo Amador MD at Smoking is Dangerous to Your Health. Avoid second hand smoking (1) Bipolar disorder Qualifiers: Active/Remission status: currently active Current bipolar episode type: manic Current episode severity: severe Psychotic features: without psychotic features Qualified Code(s): F31.13 - Bipolar disorder, current episode manic without psychotic features, severe (1) Bipolar disorder Qualifiers: Active/Remission status: currently active Current bipolar episode type: manic Current episode severity: severe Psychotic features: without psychotic features Qualified Code(s): F31.13 - Bipolar disorder, current episode manic without psychotic features, severe
== END 2018-07-01 16:45 | disposition home or self-care (01) ==
LOC: NEPJ 13:19 → H260 21:45 → NEDA 21:49 → H260 22:14 → H270 06-28 08:55
PROVIDERS: ADMIT Student in an Organized Health Care Education/Training Program; ATTEND Student in an Organized Health Care Education/Training Program